=== PATIENT | male | born 1990 | race Native Hawaiian/Other Pacific Islander ===

== ENCOUNTER 2020-07-16 17:18 | Outpatient (CLI) | payer OTHER ==
[2020-07-16 17:32] LABS: PLATELET COUNT 262 K/uL (142-355)
[2020-07-16 17:52] LABS: POTASSIUM 4.1 mmol/L (3.6-5.2)
== END 2020-07-16 19:23 | disposition home or self-care (01) ==
LOC: LAB 17:18
PROVIDERS: ATTEND Nurse Practitioner
DX: R68.82 Decreased libido (principal); Z13.0 Encounter for screening for diseases of the blood and blood-forming organs and certain disorders involving the immune mechanism; Z13.220 Encounter for screening for lipoid disorders; R53.83 Other fatigue; R53.81 Other malaise; Z13.29 Encounter for screening for other suspected endocrine disorder
CPT/HCPCS: 80053; 80061; 82306; 82607; 82670; 82746; 84402; 84403; 84443; 85027